=== PATIENT | male | born 1965 | race Caucasian/White ===

== ENCOUNTER 2021-10-10 10:26 | Emergency (ER) | payer BC, SELFPAY ==
[2021-10-10 10:27] VITALS: BP 133/88; PULSE 81; RESP 16; TEMP 35.9; O2SAT 96; BMI 29.2
--- NOTE | 2021-10-10 11:04 | EKG12_ITS ---
Test Reason : FATIGUE Blood Pressure : / mmHG Vent. Rate : 077 BPM Atrial Rate : 077 BPM P-R Int : 152 ms QRS Dur : 098 ms QT Int : 404 ms P-R-T Axes : 057 -04 045 degrees QTc Int : 457 ms Normal sinus rhythm Normal ECG Confirmed by FABIEN THAPA, ARTHUR ([id number]), supervising film or videotape editor BREE COX ([id number]) on 10/12/2021 11:38:40 AM Referred By: YAMEL Confirmed By:ARTHUR CONN MD
--- NOTE | 2021-10-10 11:04 | CT_ITS ---
STUDY: CTA CHEST REASON FOR EXAM: Male, 56 years old. Shortness of breath RADIATION DOSAGE (If Supplied By Facility): CTDIvol = ( 12.03 ) mGy, DLP = ( 590.71 ) mGycm TECHNIQUE: The examination was performed with the intravenous administration of IV 100mL Isovue-370. Post-processing of the angiographic images was performed, with multiplanar reformation and 3D reconstruction. Individualized dose optimization techniques were used for this CT. COMPARISON: None. FINDINGS: Normal enhancement of the main pulmonary artery and right and left pulmonary arteries. Normal enhancement of the bilateral peripheral pulmonary arteries. There is no demonstrated pulmonary embolism. Normal thoracic aorta and visualized great vessels. There is no demonstrated aortic dissection. There are calcifications of the coronary arteries. Normal mediastinum. Normal hilar regions. Normal visualized trachea and bronchi. The lungs are well expanded. Normal pulmonary parenchyma. Normal pleura. Normal chest wall structures. There are degenerative changes of thoracic spine. There is a 1.7 cm adenoma in the lateral limb of the right adrenal gland. CT/CTA Chest W/WO Contrast IMPRESSION: Normal CTA chest examination, without a demonstrated pulmonary embolism or arterial dissection. Electronically Signed: Naresh Kaur MD at 12:18 EST , Service support ,
--- NOTE | 2021-10-10 11:08 | EDS_ITS ---
HPI History of Present Illness Chief Complaint: Fatigue Narrative Narrative: Patient presents from urgent care with chief complaint of fatigue. He has mild shortness of breath. He relates history that he had COVID-19 approximately 2 months ago. He was feeling okay until last week. He developed a deep cough/lower respiratory infection. He was treated with doxycycline and a prednisone burst. He took day five of his prednisone this morning, and is still taking his doxycycline twice a day. He went back to urgent care, who sent him in to rule out a pulmonary embolism. He denies any leg swelling. No other PE risk factors. [facility] Medical History Melanoma Allergy/AdvReac Type Severity Reaction Status Date / Time No Known Allergies Allergy Verified 10/10/21 11:06 Social History Smoking Status: Never smoker ROS ROS ED ROS Narrative Constitutional: No fever, no chills. Positive fatigue and malaise. HEENT: No sore throat. No neck pain. No loss of vision. No rhinorrhea. Cardiovascular: No chest pain. No palpitations. No pedal edema. Respiratory: Occasional cough, mild shortness of breath. Abdominal: No abdominal pain. No nausea. No vomiting. Genitourinary: No dysuria. No hematuria. Musculoskeletal: No myalgias. No arthralgias. Neurologic: No headaches. No dizziness. No lightheadedness. Skin: No rash. No change in color. Psychiatric: No depression. No anxiety. EXAM Physical Exam Narrative Exam Narrative: Afebrile. Vital signs noted. HEENT: Normocephalic. Atraumatic. PERRL, EOMI. Neck soft and supple. No point tenderness or step off. Cardiovascular: Regular rate and rhythm. No murmurs, rubs, or gallops appreciated. Respiratory: No tachypnea. Lungs clear to auscultation bilaterally except occasional rhonchi bilateral bases. Gastrointestinal: Abdomen soft, nontender, with normoactive bowel sounds. No rebound or guarding. Neurological: Awake. Alert. Nonfocal, nonlateralizing. Skin: No rash. Normal color. No pallor. Musculoskeletal: No pedal edema. Full range of motion extremities. Const Vital Signs: 10/10/21 10:27 Temperature 96.7 F L Temperature Source Temporal Pulse Rate 81 Respiratory Rate 16 Respiratory Effort Normal Respiratory Pattern Normal Blood Pressure 133/88 H Blood Pressure Mean 103 Pulse Ox 96 Oxygen Delivery Method Room Air MDM MDM MDM Narrative Medical decision making narrative: I do not feel that he clinically has signs of a pulmonary embolism. I'll obtain a CBC, CMP, and bolused the patient IV fluids. CTA will be obtained. He is already being treated for pneumonia and is on day five of doxycycline. CBC is grossly normal with a normal white count and a hemoglobin of 15.4. His electrolyte panel is grossly unremarkable except for BUN slightly elevated 22 with a creatinine of 0.9. Glucose appropriately elevated at 122 with a normal anion gap of 5. He is bolused normal saline. His CTA shows no evidence of pneumonia, no pulmonary embolism or arterial dissection. 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 He was given a note to be off work for the next 2 days and he will follow up with his primary care physician. I feel he can be discharged safely home with follow-up. Return instructions were reviewed. Disposition is discharged home in stable condition. Lab Data Attestation: I reviewed the patient's lab results. Labs: Laboratory Results - last 24 hr 10/10/21 10/10/21 11:25 11:25 WBC 8.4 RBC 5.22 Hgb 15.4 Hct 47.3 MCV 90.6 MCH 29.5 MCHC 32.6 RDW Std Deviation 42.1 RDW Coeff of Justina 12.8 Plt Count 334 MPV 10.4 Immature Gran % (Auto) 1.000 H Neut % (Auto) 82.7 H Lymph % (Auto) 13.4 L [place] % (Auto) 2.5 Eos % (Auto) 0.0 Baso % (Auto) 0.4 Absolute Neuts (auto) 6.9 Absolute Lymphs (auto) 1.12 Nucleated RBC % 0 Sodium 139 Potassium 4.5 Chloride 107 Carbon Dioxide 27.0 Anion Gap 5 BUN 22 H Creatinine 0.99 Estim Creat Clear Calc 91.92 Est GFR (MDRD) Af Amer 100 Est GFR (MDRD) Non-Af 83 BUN/Creatinine Ratio 22.3 H Glucose 122 H Calcium 9.3 Radiography Diagnostic Testing: Clinical Impression(s) from Imaging Studies Chest CTA 10/10/21 11:04 IMPRESSION: Normal CTA chest examination, without a demonstrated pulmonary embolism or arterial dissection. Electronically Signed: Naresh Kaur MD at 12:18 EST , Service support , Discharge Plan Triage Chief Complaint: Fatigue ED Provider: Rasheed Mancera Dx/Rx/DC Orders Clinical Impression: Fatigue after severe acute respiratory syndrome coronavirus 2 (SARS-CoV-2) vaccination, Fatigue, Bronchitis Instructions: ED Bronchitis, No Antibiotic (Adult), ED Weakness (Uncertain Cause) Stand Alone Forms: ED Work / School Excuse Primary Care Provider: Kedar Haddad Referrals: Kedar Haddad MD [Primary Care Provider] - 10/17/21 Disposition Disposition: Home, Self Care
--- NOTE | 2021-10-10 11:11 | NURSING ---
NO OLD EKGS
[2021-10-10] MEDS: 0.9% Normal Saline 1,000 ML 999 ML IV (11:38)
[2021-10-10 11:43] LABS: Absolute Lymphocyte Count 1.12 X10^3/uL (0.83-4.51); Absolute Neutrophil Count 6.9 X10^3/uL (2.0-7.7); Basophil# 0.03 X10^3/uL; Basophil% 0.4 % (0-1); Hematocrit 47.3 % (40-54); Hemoglobin 15.4 g/dL (13.0-16.5); Lymphocyte # 1.12 X10^3/ul (0.83-4.51); Lymphocyte % 13.4 % (19-41); Mean Corp Hgb Conc 32.6 g/dL (32-36); Mean Corpuscular Hgb 29.5 pg (27.0-32.0); Mean Corpuscular Volume 90.6 fL (80-94); Mean Platelet Vol. 10.4 fl (6.2-12.0); Monocyte# 0.21 X10^3/uL; Monocyte% 2.5 % (0-10); NRBC Flagged by Analyzer 0 % (0-5); Neutrophil # 6.93 X10^3/uL (2.7-7.7); Neutrophil % 82.7 % (47-70); Platelet Count 334 K/mm3 (150-450); RBC Distribution Width CV 12.8 % (11.6-14.6); RBC Distribution Width SD 42.1 fl (35.1-43.9); Red Blood Count 5.22 M/mm3 (4.6-6.2); White Blood Count 8.4 K/mm3 (4.4-11.0)
[2021-10-10 12:00] LABS: Anion Gap 5 (5-15); BUN 22 mg/dL (7-18); BUN/Creat Ratio 22.3 RATIO (10-20); Calcium,Total 9.3 mg/dL (8.5-10.1); Chloride 107 mmol/L (98-107); Creatinine, Serum 0.99 mg/dL (0.70-1.30); EST Glomerular Filtration Rate 83 mL/min (>60); Est Glom Filt Rate - Afr Amer 100 mL/min (>60); Estimated Creatinine Clearance 91.92 ml/min; Glucose 122 mg/dL (74-106); Potassium 4.5 mmol/L (3.5-5.1); Sodium Level 139 mmol/L (136-145)
[2021-10-10 13:10] VITALS: BP 125/90; PULSE 74; RESP 18; O2SAT 99
== END 2021-10-10 13:11 | disposition home or self-care (01) ==
LOC: ED 12:41
PROVIDERS: Emergency Provider Emergency Medicine; PCP Family Medicine
DX: J40 Bronchitis, not specified as acute or chronic (principal); R53.83 Other fatigue
CPT/HCPCS: 71275; 80048; 85025; 93005; 96360; 96361; 99284; J7030; Q9967; A4216

== ENCOUNTER 2022-02-20 09:31 | Inpatient (IN) | payer BC, SELFPAY ==
[2022-02-20] VITALS (39 sets, daily range): BP systolic 58–138; BP diastolic 41–100; PULSE 54–154; RESP 12–29; TEMP 35.6–36.7; O2SAT 91–99; BMI 29.3; BMI 31.0
--- NOTE | 2022-02-20 09:47 | EKG12_ITS ---
Test Reason : SVT Blood Pressure : / mmHG Vent. Rate : 155 BPM Atrial Rate : 155 BPM P-R Int : 098 ms QRS Dur : 114 ms QT Int : 268 ms P-R-T Axes : 085 048 060 degrees QTc Int : 430 ms Atrial flutter with 2 to 1 block Abnormal ECG Confirmed by FABIEN THAPA, ARTHUR ([id number]), magazine editor BREE COX ([id number]) on 02/22/2022 7:37:50 AM Referred By: Wali Finnegan Confirmed By:ARTHUR CONN MD
--- NOTE | 2022-02-20 09:50 | EX.ED.DYSGE1 ---
HPI History of Present Illness Chief Complaint: Palpitations Informant: patient Narrative Narrative: Patient is a 56-year-old male that denies any past medical history of he does admit to tobacco use, presenting with shortness of breath and abnormal EKG at primary care doctor office. Patient been having some shortness of breath for the past 3 to 4 weeks. He had appointment today related EKG. He had an abnormal EKG with a heart rate of 154 so he was sent to the emergency room for further evaluation. Patient denies any sensation of his heart racing or palpitations. Denies any chest pain. Does get some dependent edema but figures as because he is on his feet all day. 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 Does not see a doctor regularly does not take any medications on a daily basis. No fever or chills. No cough reported. No other complaints at this time. [facility] Medical History Melanoma Home Medications NK 02/20/22 [History Last Taken Unknown] Allergy/AdvReac Type Severity Reaction Status Date / Time No Known Allergies Allergy Verified 02/20/22 09:34 Social History Smoking Status: Current every day smoker tobacco type: cigarettes ROS ROS ED Constitutional Constitutional ED: Denies chills or fever(s) Eyes Eyes: Denies blurry vision or change in vision ENT ENT ED: Denies rhinorrhea or sore throat Cardiovascular Cardiovascular: Denies chest pain, palpitations or racing heartbeat Respiratory/Chest Respiratory/Chest: Reports dyspnea and dyspnea on exertion; Denies cough Gastrointestinal Gastrointestinal: Denies abdominal pain, constipation, diarrhea or vomiting Genitourinary Genitourinary ED: Denies dysuria Musculoskeletal Musculoskeletal: Denies arthralgias or myalgias Integumentary Denies rash Neurologic Neurologic: Denies headache(s) or weakness Psychiatric Psychiatric: Denies anxiety or depression EXAM Physical Exam Const Vital Signs: 02/20/22 09:33 02/20/22 09:44 02/20/22 09:54 Temperature 96.9 F L Temperature Source Temporal Pulse Rate 154 H Respiratory Rate 22 H Respiratory Effort Normal Non-Labored Respiratory Pattern Normal Blood Pressure 136/96 H Blood Pressure Mean 109 Pulse Ox 98 Oxygen Delivery Method Room Air Room Air 02/20/22 10:30 02/20/22 11:24 02/20/22 11:48 Temperature 98.1 F Temperature Source Temporal Pulse Rate 125 H 121 H 113 H Respiratory Rate 17 20 H 18 Respiratory Effort Respiratory Pattern Blood Pressure 109/97 H 119/94 H 119/94 H Blood Pressure Mean 101 102 102 Pulse Ox 95 94 97 Oxygen Delivery Method Room Air Room Air Room Air Positive well nourished and well developed General Appearance ED: well developed and NAD HEENT Reports moist mucous membranes Eyes PERRL and EOMs intact bilaterally Neck supple and no JVD Chest Wall inspection of chest normal Resp normal respiratory effort Auscultation: diminished lung sounds bilateral lower Cardio regular rhythm and no murmurs Rate: tachycardic GI normal to inspection, nondistended, normoactive bowel sounds and non-tender Palpation: soft Back/Spine no CVA tenderness Extremity normal to inspection Extremity Narrative: 1+ pitting General Extremety ED: Yes edema; Negative for tenderness General Extremity: edema Neuro oriented x3 Sensorium / Orientation: alert Motor Exam: Negative for general weakness Psych mental status grossly normal Skin no rashes or lesions noted and no wounds MDM MDM MDM Narrative Medical decision making narrative: Patient is evaluated for shortness of breath. He had an outpatient EKG today which showed a tachyarrhythmia and he was sent to the emergency room. Patient is tachycardic and maintaining at a rate of 154. I suspect he has had atrial flutter with 2 1 conduction. He is given IV metoprolol with improvement of his rate however he is now in the 110's. Patient is minimally symptomatic. He notes he has been having worsening dyspnea on exertion and shortness of breath over the past month. Does not see a doctor regularly but does not have any cardiac history. Does have a history of tobacco use. High since he troponin is normal at 37. He does have an elevated BNP of 348.7. D-dimer is elevated at 1.02. CBC normal. BMP shows creatinine 1.23 but otherwise unremarkable. CTA of the chest is indeterminant but low likelihood for right lower lobe segmental PE however it does show dilated left ventricular cardiomyopathy with moderate pulmonary edema and moderate coronary artery disease. Patient is given IV Lasix in the ER. He will be admitted for further rate control as well as cardiac evaluation for concern of new onset of heart failure. He is agreeable this plan of care. Case is discussed with hospitalist. Lab Data Attestation: I reviewed the patient's lab results. Labs: Laboratory Results - last 24 hr 02/20/22 02/20/22 02/20/22 09:35 09:35 09:35 WBC 7.9 RBC 4.47 L Hgb 13.4 Hct 42.3 MCV 94.6 H MCH 30.0 MCHC 31.7 L RDW Std Deviation 45.3 H RDW Coeff of Justina 13.1 Plt Count 300 MPV 11.2 Immature Gran % (Auto) 0.500 Neut % (Auto) 60.0 Lymph % (Auto) 27.7 [place] % (Auto) 7.8 Eos % (Auto) 3.0 Baso % (Auto) 1.0 Absolute Neuts (auto) 4.7 Absolute Lymphs (auto) 2.19 Nucleated RBC % 0 PT 12.9 INR 1.0 D-Dimer Quant (PE/DVT) 1.02 H* Sodium 139 Potassium 4.4 Chloride 110 H Carbon Dioxide 23.0 Anion Gap 6 BUN 17 Creatinine 1.23 Estim Creat Clear Calc 73.98 Est GFR (MDRD) Af Amer 78 Est GFR (MDRD) Non-Af 64 BUN/Creatinine Ratio 13.8 Glucose 120 H Calcium 9.0 Magnesium 2.0 Troponin I High Sens B-Natriuretic Peptide TSH 1.99 02/20/22 02/20/22 09:35 09:35 WBC RBC Hgb Hct MCV MCH MCHC RDW Std Deviation RDW Coeff of Justina Plt Count MPV Immature Gran % (Auto) Neut % (Auto) Lymph % (Auto) [place] % (Auto) Eos % (Auto) Baso % (Auto) Absolute Neuts (auto) Absolute Lymphs (auto) Nucleated RBC % PT INR D-Dimer Quant (PE/DVT) Sodium Potassium Chloride Carbon Dioxide Anion Gap BUN Creatinine Estim Creat Clear Calc Est GFR (MDRD) Af Amer Est GFR (MDRD) Non-Af BUN/Creatinine Ratio Glucose Calcium Magnesium Troponin I High Sens 37 B-Natriuretic Peptide 348.7 H TSH Radiography Chest X-Ray - ED: 1 View, Read by ED Physician, Read by Radiologist and CHF Diagnostic Testing: Clinical Impression(s) from Imaging Studies Chest X-Ray 02/20/22 09:56 IMPRESSION: Presumed bilateral pneumonia. Electronically Signed: Varsha Reyna MD at 10:25 EDT , Chest CTA 02/20/22 10:27 IMPRESSION: 1. No central/large pulmonary embolism. 2. Inconclusive right lower lobe segmental arterial evaluation, intermediate probability of low volume acute pulmonary embolism. Refer to lower extremity US for further risk stratification. 3. Intact aorta. 4. 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 5. Moderate coronary artery disease. Electronically Signed: Varsha Reyna MD at 11:20 EDT , Rhythm Strip Rhythm Strip: Atrial flutter Rate: 155 Ectopy: None EKG Initial EKG: Attestation: I personally reviewed and interpreted this EKG as follows: Interpretation: Atrial Flutter Comments: Atrial flutter with 2 1 conduction at a rate of 155 Normal axis Normal intervals Normal ST segments Prior: No Prior Follow-up EKG: Attestation: I personally reviewed and interpreted this EKG as follows: Interpretation: Atrial Flutter Comments: Atrial flutter with variable AV block and PVCs present Rate of 117 Normal axis Normal QRS and QTc Normal ST segments Discharge Plan Triage Chief Complaint: Palpitations ED Provider: Stacy Macias Dx/Rx/DC Orders Clinical Impression: Atrial flutter with rapid ventricular response, Heart failure Prescriptions: No Action NK RF: 0 Primary Care Provider: Kedar Haddad Referrals: Kedar Haddad MD [Primary Care Provider] - Disposition Disposition: Acute Care Hospital [facility]
[2022-02-20] MEDS: 0.9% Normal Saline 1,000 ML 1000 ML IV (09:55)
[2022-02-20] MEDS: Metoprolol Tartrate 5 MG/5 ML Vial IV ×3 (09:56→11:24)
[2022-02-20] MEDS: Aspirin 81 MG TAB.CHEW 324 MG PO (09:56)
--- NOTE | 2022-02-20 09:56 | RAD_ITS ---
STUDY: X-RAY CHEST REASON FOR EXAM: Male, 56 years old. chest pain GOT EKG THIS MORNING SHOWING SVT. STATES SAW DOC FOR INCREASED SOB TECHNIQUE: Frontal portable view of the chest COMPARISON: 10 October 2021 FINDINGS: There are heterogeneous multifocal bilateral nodular/regional opacities. There is no pneumothorax, pulmonary edema, cardiomegaly or effusions. RAD/Chest 1 View (Portable) IMPRESSION: Presumed bilateral pneumonia. Electronically Signed: Varsha Reyna MD at 10:25 EDT ,
[2022-02-20 09:58] LABS: Absolute Lymphocyte Count 2.19 X10^3/uL (0.83-4.51); Absolute Neutrophil Count 4.7 X10^3/uL (2.0-7.7); Basophil# 0.08 X10^3/uL; Eosinophil# 0.24 X10^3/uL; Hematocrit 42.3 % (40-54); Hemoglobin 13.4 g/dL (13.0-16.5); Lymphocyte # 2.19 X10^3/ul (0.83-4.51); Lymphocyte % 27.7 % (19-41); Mean Corp Hgb Conc 31.7 g/dL (32-36); Mean Corpuscular Volume 94.6 fL (80-94); Mean Platelet Vol. 11.2 fl (6.2-12.0); Monocyte# 0.62 X10^3/uL; Monocyte% 7.8 % (0-10); NRBC Flagged by Analyzer 0 % (0-5); Neutrophil # 4.74 X10^3/uL (2.7-7.7); Platelet Count 300 K/mm3 (150-450); RBC Distribution Width CV 13.1 % (11.6-14.6); RBC Distribution Width SD 45.3 fl (35.1-43.9); Red Blood Count 4.47 M/mm3 (4.6-6.2); White Blood Count 7.9 K/mm3 (4.4-11.0)
[2022-02-20 10:10] LABS: Prothrombin Time (Protime)PT. 12.9 SECONDS (11.7-14.9)
[2022-02-20 10:18] LABS: D-Dimer Quantitative (DVT/PE) 1.02 FEU/ug/m (0.27-0.49)
[2022-02-20 10:20] LABS: BNP,B-Type NATRIURETIC PEPTIDE 348.7 pg/mL (0-100)
[2022-02-20 10:22] LABS: Anion Gap 6 (5-15); BUN 17 mg/dL (7-18); BUN/Creat Ratio 13.8 RATIO (10-20); Chloride 110 mmol/L (98-107); Creatinine, Serum 1.23 mg/dL (0.70-1.30); EST Glomerular Filtration Rate 64 mL/min (>60); Est Glom Filt Rate - Afr Amer 78 mL/min (>60); Estimated Creatinine Clearance 73.98 ml/min; Glucose 120 mg/dL (74-106); Potassium 4.4 mmol/L (3.5-5.1); Sodium Level 139 mmol/L (136-145); Thyroid Stim Hormone (TSH) 1.99 uIU/mL (0.358-3.74)
--- NOTE | 2022-02-20 10:27 | CT_ITS ---
STUDY: CTA CHEST REASON FOR EXAM: Male, 56 years old. Palpitations elevated d-dimer RADIATION DOSAGE (If Supplied By Facility): CTDIvol = ( 17.61 ) mGy, DLP = ( 1164.17 ) mGycm TECHNIQUE: The examination was performed with the intravenous administration of IV 100mL Isovue-370. Post-processing of the angiographic images was performed, with multiplanar reformation and 3D reconstruction. Individualized dose optimization techniques were used for this CT. COMPARISON: None. FINDINGS: Examination is technically suboptimal due to poor mixing of contrast and opacification in the distal segmental arteries. There is no central/large pulmonary embolism.. There is questionable appearance of right lower lobe subsegmental arteries. There is no right heart strain. Aorta is normal caliber and intact with early mixed atherosclerosis. There is small right pleural effusion and bilateral basal atelectasis. There is moderate pulmonary edema. Left heart is severely dilated with normal right heart. Pericardium is normal. Coronary arteries are moderately diseased with calcified plaque. Number and size of mediastinal lymph nodes in all stations has increased. Largest lymph node is in the subcarinal station at 1.6 cm. There is a benign calcified dystrophic pretracheal lymph nodes. CT/CTA Chest W/WO Contrast IMPRESSION: 1. No central/large pulmonary embolism. 2. Inconclusive right lower lobe segmental arterial evaluation, intermediate probability of low volume acute pulmonary embolism. Refer to lower extremity US for further risk stratification. 3. Intact aorta. 4. 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 5. Moderate coronary artery disease. Electronically Signed: Varsha Reyna MD at 11:20 EDT ,
[2022-02-20 10:54] LABS: Troponin-I HS (w/2H Reflex) 37 pg/mL (3.0-78.0)
--- NOTE | 2022-02-20 10:57 | EKG12_ITS ---
Test Reason : CP Blood Pressure : / mmHG Vent. Rate : 130 BPM Atrial Rate : 270 BPM P-R Int : 000 ms QRS Dur : 106 ms QT Int : 352 ms P-R-T Axes : 000 067 091 degrees QTc Int : 518 ms Atrial flutter with variable A-V block Abnormal ECG Confirmed by FABIEN THAPA, ARTHUR ([id number]), book or script editor BREE COX ([id number]) on 02/22/2022 10:50:03 AM Referred By: Wali Finnegan Confirmed By:ARTHUR CONN MD
--- NOTE | 2022-02-20 11:45 | HP.PCM.HOS_ITS ---
[facility] - General General Date of Admission: 02/20/22 HPI Narrative CAMRYN ALFRED, is a 56 M with a PMH as outlined who presents via the ED on 02/20/2022 with a complaint of palpitations. This had been going on for ~ 4 weeks, with associated shortness of breath. He denied any dizziness, chest pain, nausea or vomiting. Review of systems is otherwise negative. He hasnt had this previously, and doesnt see a doctor regularly. He went to see his PCP today and an EKG done showed heart rate of 154. It was thought to be SVT so he was sent into the ED. On arrival in the ED he had an EKG done which was read as atrial flutter. Vitals at time of review showed blood pressure 119/94, with pulse rate of 121 and respiratory rate of 20. He was saturating at 94% on room air. CBC showed hemoglobin of 13.4 with WBC of 7.9 and platelets of 300. D-dimer was 1.02. BMP was unremarkable with potassium of 4.4. BNP was 348.7. Chest x-ray showed presumed bilateral pneumonia. CTA of the chest showed no central or large pulmonary embolism and showed inconclusive right lower lobe segmental arterial evaluation with intermediate probability of low volume acute PE. 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 He has been admitted to be managed for new onset atrial flutter with rapid ventricular rate. WHilst reviewing patient, a repeat EKG done showed that he was having a STEMI. A STEMI alert was therefore called. Cardiology however reviewed the EKG and did not think that he met the criteria for STEMI so patient was not taken to the [facility]. He was therefore admitted to be managed for new onset atrial flutter with RVR as well as probable new onset heart failure. [facility] Medical History (Updated 02/20/22 @ 15:[address] Gregor Amaya MD) Cardiomyopathy CHF (congestive heart failure) Melanoma Home Medications NK 02/20/22 [History Last Taken Unknown] Allergy/AdvReac Type Severity Reaction Status Date / Time No Known Allergies Allergy Verified 02/20/22 09:34 Social History Smoking Status: Current every day smoker tobacco type: cigarettes ROS Constitutional Constitutional: Reports weakness; Denies anorexia, change in weight, chills or fever(s) Eyes Eyes: Denies change in vision ENT HEENT: Reports nasal congestion; Denies dysphagia, hearing loss or nasal discharge Cardiovascular Cardiovascular: Reports palpitations and rapid heart rate; Denies chest pain, dyspnea on exertion, edema, lightheadedness, orthopnea, paroxysmal nocturnal dyspnea or syncope Respiratory/Chest Respiratory/Chest: Reports dyspnea and productive cough; Denies cough, excessive phlegm production, hemoptysis, shortness of breath at rest, shortness of breath with exertion or wheezing Gastrointestinal Gastrointestinal: Denies abdominal pain, coffee ground emesis, constipation, diarrhea, nausea or vomiting Genitourinary Genitourinary: Denies burning urination or dysuria Musculoskeletal Musculoskeletal: Denies back pain or joint swelling Neurologic Neurologic: Denies abnormal gait, confusion, dizziness, focal weakness or headache(s) Psychiatric Psychiatric: Denies anxiety Allergic/Immunologic Allergic/Immunologic: Denies asthma Vital Signs Vital Signs Vital Signs: 02/20/22 09:33 02/20/22 09:44 02/20/22 09:54 Temperature 96.9 F L Temperature Source Temporal Pulse Rate 154 H Respiratory Rate 22 H Respiratory Effort Normal Non-Labored Respiratory Pattern Normal Blood Pressure 136/96 H Blood Pressure Mean 109 Pulse Ox 98 Oxygen Delivery Method Room Air Room Air 02/20/22 10:30 02/20/22 11:24 Temperature Temperature Source Pulse Rate 125 H 121 H Respiratory Rate 17 20 H Respiratory Effort Respiratory Pattern Blood Pressure 109/97 H 119/94 H Blood Pressure Mean 101 102 Pulse Ox 95 94 Oxygen Delivery Method Room Air Room Air Weight Weight: 222 lb 3.615 oz Body Mass Index (BMI) 29.3 Physical Exam Const alert, oriented x3 and no apparent distress General Appearance: cooperative HEENT normocephalic, head/scalp atraumatic, hearing grossly normal bilaterally and moist oral mucous membranes Eyes PERRL, EOMs intact bilaterally and conjunctivae normal Neck no lymphadenopathy and supple Resp Resp Narrative: mildly diminished breath sounds bibasally, no wheezes or crackles. On 2L of oxygen by nasal canula Cardio Cardio Narrative: tachycardia, atrial flutter with poor rate control GI normal to inspection, nondistended, normoactive bowel sounds, soft to palpation, non-tender and non-distended Extremity normal to inspection, full ROM and no clubbing, cyanosis or edema Peripheral Pulses: Yes pulses 2+ throughout Skin no rashes or lesions noted Neuro oriented x3, CN's II-XII intact bilaterally and moves all extremities Sensorium / Orientation: awake and alert Psych affect normal Results Lab / Micro Data Result Diagrams: 02/20/22 09:35 02/20/22 09:35 Labs: Laboratory Results - last 24 hr 02/20/22 09:35: WBC 7.9, RBC 4.47 L, Hgb 13.4, Hct 42.3, MCV 94.6 H, MCH 30.0, MCHC 31.7 L, RDW Std Deviation 45.3 H, RDW Coeff of Justina 13.1, Plt Count 300, MPV 11.2, Immature Gran % (Auto) 0.500, Neut % (Auto) 60.0, Lymph % (Auto) 27.7, Mcleod % (Auto) 7.8, Eos % (Auto) 3.0, Baso % (Auto) 1.0, Absolute Neuts (auto) 4.7, Absolute Lymphs (auto) 2.19, Nucleated RBC % 0 02/20/22 09:35: PT 12.9, INR 1.0, D-Dimer Quant (PE/DVT) 1.02 H* 02/20/22 09:35: Sodium 139, Potassium 4.4, Chloride 110 H, Carbon Dioxide 23.0, Anion Gap 6, BUN 17, Creatinine 1.23, Estim Creat Clear Calc 73.98, Est GFR (MDRD) Af Amer 78, Est GFR (MDRD) Non-Af 64, BUN/Creatinine Ratio 13.8, Glucose 120 H, Calcium 9.0, Magnesium 2.0, TSH 1.99 02/20/22 09:35: B-Natriuretic Peptide 348.7 H 02/20/22 09:35: Troponin I High Sens 37 Radiology Impression Chest X-Ray 02/20/22 09:56 IMPRESSION: Presumed bilateral pneumonia. Electronically Signed: Varsha Reyna MD at 10:25 EDT , Chest CTA 02/20/22 10:27 IMPRESSION: 1. No central/large pulmonary embolism. 2. Inconclusive right lower lobe segmental arterial evaluation, intermediate probability of low volume acute pulmonary embolism. Refer to lower extremity US for further risk stratification. 3. Intact aorta. 4. 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 5. Moderate coronary artery disease. Electronically Signed: Varsha Reyna MD at 11:20 EDT Reading Location ID and State: [facility] / [place] Tel , Service support , Assessment & Plan Assessment/Plan (1) Atrial flutter with rapid ventricular response: (2) Heart failure: PLAN: #Atrial flutter with RVR * admitted with palpitations and shortness of breath for 3-4 weeks now. * EKG showed atrial flutter with RVR * admit to PCU with telemetry * received a bolus of cardizem in the ED. Started on cardizem drip * Was thought to have STEMI but cardiology reviewed EKG and did not think he had STEMI. * on therapeutic lovenox * cardiology consulted * initial troponin was negative. Will cycle * diurese with IV lasix 40mg bid o/a of concern for heart failure * TSH is 1.99 * 2D echo ordered * D dimer was elevated at 1.02, but CTA showed showed no central large pulmonary embolism but was inconclusive for right lower lobe segmental arterial evaluation with intermediate probability for low volume acute PE. Duplex of the LEs recommended. * #Acute heart failure of unknown EF * BNP is 348.7. Not known to have heart failure * Diuresed with IV Lasix 40 mg twice daily. Monitor intake and output. Fluid restriction 1500 cc daily. * Cardiology consulted. 2D echo ordered as above. * # history of nicotine dependence: Counseled to quit. Nicotine patch 21 mg daily. DVT Prophylaxis: not indicated as patient is on therapeutic lovenox o/a of atrial flutter. CODE STATUS: Full code * Patient counseled extensively about different types of CODE STATUS including full code, DNR CCA and DNR CCA. Patient elects to be full code. Total [id number] time 17 minutes. Charges/Coding Visit Charges Inpatient E&M: 92669 Init Hosp L3 Procedures Hospitalists Procedures: 81659 Advncd Care Plan 30 Min
[2022-02-20] MEDS: Furosemide 40 MG/4 ML Vial IV (11:48)
--- NOTE | 2022-02-20 11:49 | VDLE_ITS ---
Reason For Study: elevated D-Dimer RIGHT LEFT GSV is normal. GSV is normal. CFV is compressible, spontaneous, phasic, CFV is compressible, spontaneous, phasic, competent and demonstrates normal competent, and demonstrates normal augmentation. augmentation. FV is compressible, spontaneous, phasic, FV is compressible, spontaneous, phasic, competent and demonstrates normal competent and demonstrates normal augmentation. augmentation. POP V is compressible, spontaneous, phasic, POP V is compressible, spontaneous, phasic, competent and demonstrates normal competent and demonstrates normal augmentation. augmentation. T/P Trunk is compressible. T/P Trunk is compressible. PTV is compressible. PTV is compressible. RT PerV is compressible. LT PerV is compressible. Procedure This is a venous duplex using B-mode, color flow and spectral Doppler. Exam performed portable in patient room. The exam was diagnostic. A preliminary report was called and/or faxed to the pt's RN. VL/Venous Duplex US - [place] Extrem Interpretation Summary No evidence for acute deep venous thrombosis bilateral lower extremities with p atent and compressible bilateral great saphenous veins. Ordering Physician: Stacy Macias Performed By: Rod Vargas RVHumphrey
[2022-02-20] MEDS: Heparin Injection (Vial) 5,000 UNIT/ML VIAL 4000 UNIT IV (12:12)
--- NOTE | 2022-02-20 12:14 | CM.ED ---
Social Work Responding to STEMI alert. Patient alert and talking with staff. Patient reports that spouse is on the way to the hospital. Patient spouse name is Mita. This geriatric social worker will continue to follow as needed. agent spa desk notified of patient spouse coming. Mary LANIER, GUIDO
--- NOTE | 2022-02-20 12:21 | ED.RN ---
PT BECAME SOB WHILE TAKING PANTS OFF FOR ULTRASOUND, EKG WAS OBTAINED AT THIS TIME. DENIES ANY CHEST PAIN. STEMI CALLED AT 1207
[2022-02-20 12:30] LABS: Reflex Troponin-HS? (from REC) Y
[2022-02-20] MEDS: dilTIAZem 25 MG/5 ML Vial 10 MG IV BOLUS (13:06)
[2022-02-20 13:38] LABS: Troponin-I HS 40 pg/mL (3.0-78.0)
--- NOTE | 2022-02-20 13:56 | ECHOCS_ITS ---
Reason For Study: A fib/flutter Procedure This was a 2D Doppler, Color Flow transthoracic echocardiogram. The study was technically difficult. Contrast injection was performed. Exam performed portable in patient room. Left Ventricle Severely dilated left ventricle. Severe global left ventricular systolic dysfunction. The estimated ejection fraction is 10 %. Unable to assess diastolic dysfunction. Right Ventricle Normal RV size. Normal systolic function. Atria The left atrium is moderately enlarged. Normal right atrium. No doppler evidence for ASD. Mitral Valve There is no mitral annular calcification. Mild papillary muscle dysfunction of the mitral valve. Moderate (2+) mitral valve insufficiency. Tricuspid Valve Normal tricuspid valve. Mild tricuspid valve insufficiency. Right ventricular systolic pressure estimated to be 32 mmHg. Aortic Valve Trisinus/trileaflet aortic valve. Normal aortic valve. Pulmonic Valve The pulmonic valve is not well visualized. Great Vessels Normal sized aortic root. Pericardium/Pleural No pericardial effusion. Medication Diluted definity 3ml given slow IV push to enhance endocardial definition. MMode/2D Measurements & Calculations LVIDd: 6.9 cm IVSd: 0.95 cm Ao root diam: 3.0 cm LVIDs: 6.2 cm LVPWd: 0.86 cm RVDd: 4.5 cm FS: 10.2 % LAV(MOD-bp): 101.9 ml LVAd ap4: 59.4 cm2 SV(MOD-sp4): 39.9 ml LAV(MOD-bp) Indexed: 44.2 ml/m2 LVLd ap4: 10.3 cm LAV(MOD-sp2): 101.8 ml EDV(MOD-sp4): 282.7 ml LAV(MOD-sp4): 93.6 ml EDV(sp4-el): 291.0 ml LVAs ap4: 54.9 cm2 LVLs ap4: 10.3 cm ESV(MOD-sp4): 242.7 ml ESV(sp4-el): 247.8 ml EF(MOD-sp4): 14.1 % EF(sp4-el): 14.8 % SV(sp4-el): 43.2 ml LA A4 area: 28.7 cm2 LA dimension(2D): 4.9 cm RA A4 area: 18.9 cm2 Doppler Measurements & Calculations MV E max lionel: 114.8 cm/sec Ao V2 max: 99.9 cm/sec LV V1 max: 74.9 cm/sec Ao max P.1 mmHg LV V1 max P.3 mmHg PA V2 max: 75.2 cm/sec TR max lionel: 270.6 cm/sec TR max P.3 mmHg ECHO/Echo Complete W/ Contrast Interpretation Summary The study was technically difficult. Contrast injection was performed. Severely dilated left ventricle. Severe global left ventricular systolic dysfunction. The estimated ejection fraction is 10 %. The left atrium is moderately enlarged. Mild papillary muscle dysfunction of the mitral valve. Moderate (2+) mitral valve insufficiency. Mild tricuspid valve insufficiency. Right ventricular systolic pressure estimated to be 32 mmHg. Unable to assess diastolic dysfunction. Ordering Physician: Rebeca Duron Referring Physician: MD Catie Kedar Performed By: Lina Martinez RDCS
--- NOTE | 2022-02-20 14:56 | CON.PCM.CA_ITS ---
Assessment & Plan Assessment/Plan (1) Atrial flutter with rapid ventricular response: PLAN: The patient has findings of atrial flutter with rapid ventricular response. The etiology is unclear at this time. There is concern that this may be related to the finding of an underlying cardiomyopathy. The patient has been evaluated for thromboembolic disease. His chest CT scan report is somewhat vague with respect to the presence of a PE. His lower extremity venous duplex study is preliminary reported as negative for any evidence of lower extremity thrombosis that would lead to a PE. The duration of his atrial dysrhythmia is also on known at this time. He has been treated with rate control therapy. An order has been placed for anticoagulant therapy with enoxaparin/Lovenox. It may not be unreasonable to attempt antiarrhythmic therapy such as IV amiodarone which may assist with rate control and may potentially assist with regaining and/or maintaining sinus rhythm. (2) Cardiomyopathy: PLAN: The patient appears to have an underlying cardiomyopathy with sig nificant left ventricular systolic dysfunction/reduced ejection fraction. It is unclear as to whether or not this is secondary to his atrial dysrhythmia or potentially leading to his atrial dysrhythmia and being related to another etiology either CAD related or non-CAD related. At the present time the patient will need to continue medical management which could include agents such as beta-blockers, afterload reducing agents, diuretics, etc. The patient will need to be considered for further evaluation of the possibility of CAD leading to his findings with diagnostic cardiac catheterization. The procedure risks have been discussed with him. He was agreeable to this approach. (3) CHF (congestive heart failure): PLAN: The patient does have underlying CHF. At the moment this appears to be acute systolic mediated CHF. This appears to be related to a combination of his underlying atrial dysrhythmia and the finding of an underlying cardiomyopathy. Again he will need to continue medical management which will include agents such as nitrates, beta-blockers, diuretics, afterload reducing agents, etc. all as deemed appropriate and tolerated. He will need to continue further noninvasive and invasive valuation and care as deemed appropriate. Addt'l Comments The patient's case was discussed and reviewed with the patient and Dr. Finnegan of interventional cardiology. This note was generated using a voice recognition system and there may be incorrect words, spelling or punctuation that were not noted when reviewing the office note prior to saving. HPI Consult Data Date of Consult: 02/20/22 HPI Narrative HPI Narrative: CAMRYN ALFRED, is a 56 year old whtie male who presents cardiovascular consultation based upon concerns of shortness of breath/dyspnea with exertion and atrial flutter with rapid ventricular response. He states over at least the last month he has been progressively short of breath and dyspneic with exertional activity to the point where he has been only able to walk a few feet before becoming short of breath and dyspneic. He states this does not necessarily bother him when he is sitting or lying down. He does not recall any chest discomfort with his shortness of breath and dyspnea. There has been no obvious acute orthopnea or PND or peripheral pitting edema. He denies the sensation of any type of palpitations or rapid heart rate. There has been no near-syncope or syncope. He presented to the [facility] emergency department today for further evaluation. During his evaluation he had a troponin I level performed which was negative. He had an ECG performed which appeared to demonstrate atrial flutter with a repeat ECG demonstrating atrial flutter with with concerns of an acute ST segment elevation [place]-inferior. The patient was subsequently evaluated by Dr. Finnegan of interventional cardiology. Status post his evaluation the ECG was deemed to represent underlying atrial flutter with no acute ST segment elevation-inferior present. The patient then was recommended for continued noninterventional evaluation and care. The patient has subsequently undergone evaluation with a chest x-ray and a chest CT scan. The results are noted below. The patient is also subsequently undergone evaluation with a lower extremity venous duplex study to evaluate for DVT. The preliminary evaluation is negative for DVT. The patient has also undergone further evaluation with a transthoracic echocardiogram. The results are noted below. In brief this demonstrated a dilated left ventricle with severe global left ventricular systolic dysfunction with an estimated LVEF of approximately 10%. [facility] Medical History (Updated 02/20/22 @ 15:[address] Gregor Amaya MD) Cardiomyopathy CHF (congestive heart failure) Melanoma Home Medications NK 02/20/22 [History Last Taken Unknown] Allergy/AdvReac Type Severity Reaction Status Date / Time No Known Allergies Allergy Verified 02/20/22 09:34 Social History Smoking Status: Current every day smoker tobacco type: cigarettes ROS Constitutional Constitutional: Reports fatigue Eyes Eyes: Reports as per HPI ENT HEENT: Reports as per HPI Cardiovascular Cardiovascular: Reports dyspnea on exertion and fatigue Respiratory/Chest Respiratory/Chest: Reports dyspnea on exertion Gastrointestinal Gastrointestinal: Reports as per HPI Genitourinary Genitourinary: Reports as per HPI Musculoskeletal Musculoskeletal: Reports as per HPI Integumentary Integumentary: Reports as per HPI Neurologic Neurologic: Reports as per HPI Psychiatric Psychiatric: Reports as per HPI Physical Exam Const alert, oriented x3 and no apparent distress Orientation / Consciousness: awake HEENT normocephalic, head/scalp atraumatic and hearing grossly normal bilaterally Eyes PERRL, EOMs intact bilaterally and conjunctivae normal Neck full ROM, supple and no JVD Resp Auscultation: breath sounds absent bilateral (bases) Cardio Rhythm: abnormal rhythm irregularly irregular Heart Sounds: S1 normal and S2 normal GI normal to inspection, nondistended, normoactive bowel sounds Extremity no pedal edema Skin no rashes or lesions noted Neuro oriented x3, moves all extremities, no focal motor deficits and no sensory deficits noted Psych mental status grossly normal Risk Stratification Risk Stratification Applicable: No Procedure Criteria Type of Procedure Procedure Type: Elective Elective Risks - COVID COVID Risk Discussion: The surgeon/proceduralist and patient have discussed in detail the risk of exposure to and/or potential harm posed by the COVID-19 virus with having a surgery/procedure at this time versus the risk of delaying the surgery/procedure. It is not possible to know either the risk of delaying the surgery or procedure or chance of getting an infection with perfect accuracy, but a joint decision was made between the patient and the surgeon/proceduralist to proceed at this time with the scheduled surgery/procedure as indicated on the consent form. Objective Data Vital Signs: Vital Signs Temp Pulse Resp BP Pulse Ox 98.1 F 100 18 109/82 H 96 02/20/22 11:48 02/20/22 14:45 02/20/22 14:45 02/20/22 14:45 02/20/22 14:45 Oxygen Flow Rate (L/min) 2 Oxygen Delivery Method Nasal Cannula Weight: 235 lb 0.204 oz Body Mass Index (BMI) 31.0 Intake & Output: Intake and Output for Last 24 Hours 02/18/22 02/19/22 02/20/22 23:59 23:59 23:59 Intake Total 1009.25 / 1009.25 Balance 1009.25 / 1009.25 Lab / Micro Data Result Diagrams: 02/20/22 09:35 02/20/22 09:35 Labs: Laboratory Results - last 24 hr 02/20/22 09:35: WBC 7.9, RBC 4.47 L, Hgb 13.4, Hct 42.3, MCV 94.6 H, MCH 30.0, MCHC 31.7 L, RDW Std Deviation 45.3 H, RDW Coeff of Justina 13.1, Plt Count 300, MPV 11.2, Immature Gran % (Auto) 0.500, Neut % (Auto) 60.0, Lymph % (Auto) 27.7, Early % (Auto) 7.8, Eos % (Auto) 3.0, Baso % (Auto) 1.0, Absolute Neuts (auto) 4.7, Absolute Lymphs (auto) 2.19, Nucleated RBC % 0 02/20/22 09:35: PT 12.9, INR 1.0, D-Dimer Quant (PE/DVT) 1.02 H* 02/20/22 09:35: Sodium 139, Potassium 4.4, Chloride 110 H, Carbon Dioxide 23.0, Anion Gap 6, BUN 17, Creatinine 1.23, Estim Creat Clear Calc 73.98, Est GFR (MDRD) Af Amer 78, Est GFR (MDRD) Non-Af 64, BUN/Creatinine Ratio 13.8, Glucose 120 H, Calcium 9.0, Magnesium 2.0, TSH 1.99 02/20/22 09:35: B-Natriuretic Peptide 348.7 H 02/20/22 09:35: Troponin I High Sens 37 02/20/22 12:55: Troponin I High Sens 40 Rhythm Strip Rhythm Strip: Atrial flutter Rate: 155 Ectopy: None Cardiology Labs/Tests 02/20/22 09:35: WBC 7.9, RBC 4.47 L, Hgb 13.4, Hct 42.3, MCV 94.6 H, MCH 30.0, MCHC 31.7 L, Plt Count 300, MPV 11.2, Immature Gran % (Auto) 0.500, Neut % (Auto) 60.0, Lymph % (Auto) 27.7, Early % (Auto) 7.8, Eos % (Auto) 3.0, Baso % (Auto) 1.0, Absolute Neuts (auto) 4.7, Nucleated RBC % 0 02/20/22 09:35: PT 12.9, INR 1.0, D-Dimer Quant (PE/DVT) 1.02 H* 02/20/22 09:35: Sodium 139, Potassium 4.4, Chloride 110 H, Carbon Dioxide 23.0, Anion Gap 6, BUN 17, Creatinine 1.23, Est GFR (MDRD) Af Amer 78, Est GFR (MDRD) Non-Af 64, BUN/Creatinine Ratio 13.8, Glucose 120 H, Calcium 9.0, Magnesium 2.0 02/20/22 09:35: B-Natriuretic Peptide 348.7 H Rhythm: Atrial flutter EKG: Atrial flutter; low voltage QRS limb lead ECHO: Interpretation Summary The study was technically difficult. Contrast injection was performed. Severely dilated left ventricle. Severe global left ventricular systolic dysfunction. The estimated ejection fraction is 10 %. The left atrium is moderately enlarged. Mild papillary muscle dysfunction of the mitral valve. Moderate (2+) mitral valve insufficiency. Mild tricuspid valve insufficiency. Right ventricular systolic pressure estimated to be 32 mmHg. Unable to assess diastolic dysfunction. Radiography Diagnostic Testing: Radiology Impression Chest X-Ray 02/20/22 09:56 IMPRESSION: Presumed bilateral pneumonia. Electronically Signed: Varsha Reyna MD at 10:25 EDT , Chest CTA 02/20/22 10:27 IMPRESSION: 1. No central/large pulmonary embolism. 2. Inconclusive right lower lobe segmental arterial evaluation, intermediate probability of low volume acute pulmonary embolism. Refer to lower extremity US for further risk stratification. 3. Intact aorta. 4. 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 5. Moderate coronary artery disease. Electronically Signed: Varsha Reyna MD at 11:20 EDT ,
[2022-02-20] MEDS: Metoprolol Tartrate 25 MG Tablet PO (14:59)
[2022-02-20] MEDS: 0.9% Saline Lock 10 ML Syringe IV (14:59)
[2022-02-20 16:50] LABS: Thyroid Stim Hormone (TSH) 1.13 uIU/mL (0.358-3.74); Troponin-I HS 35 pg/mL (3.0-78.0)
[2022-02-20] MEDS: Ondansetron 4 MG/2 ML Vial IV (17:04)
--- NOTE | 2022-02-20 17:04 | EKG12_ITS ---
Test Reason : REPEAT CP Blood Pressure : / mmHG Vent. Rate : 117 BPM Atrial Rate : 277 BPM P-R Int : 000 ms QRS Dur : 106 ms QT Int : 370 ms P-R-T Axes : 268 057 076 degrees QTc Int : 516 ms Atrial flutter with variable A-V block with premature ventricular or aberrantly conducted complexes Abnormal ECG Confirmed by FABIEN THAPA, ARTHUR ([id number]), editor magazine BREE [employer] ([id number]) on 02/22/2022 10:50:33 AM Referred By: Wali Finnegan Confirmed By:ARTHUR CONN MD
--- NOTE | 2022-02-20 17:08 | EKG12_ITS ---
Test Reason : CP Blood Pressure : / mmHG Vent. Rate : 069 BPM Atrial Rate : 264 BPM P-R Int : 000 ms QRS Dur : 114 ms QT Int : 448 ms P-R-T Axes : -85 065 085 degrees QTc Int : 480 ms Atrial flutter with variable A-V block Abnormal ECG Confirmed by FABIEN THAPA, RATHUR ([id number]), health editor [employer] ([id number]) on 02/22/2022 11:04:41 AM Referred By: aWli Finnegan Confirmed By:ARTHUR CONN MD
--- NOTE | 2022-02-20 17:16 | NURSING ---
patient diaphoretic, nauseated, vomited 100cc, cardizem turned off, [facility] made aware, new orders received, zofran given, EKG obtained. Cold washcloth and fan provided.
[2022-02-20] MEDS: Acetaminophen 325 MG Tablet 650 MG PO (17:41)
[2022-02-20] MEDS: Enoxaparin 100 MG/ML Syringe SC (21:17)
--- NOTE | 2022-02-20 21:28 | EKG12_ITS ---
Test Reason : CP Blood Pressure : / mmHG Vent. Rate : 057 BPM Atrial Rate : 228 BPM P-R Int : 000 ms QRS Dur : 100 ms QT Int : 498 ms P-R-T Axes : 090 044 086 degrees QTc Int : 484 ms Atrial flutter Abnormal ECG Confirmed by FABIEN THAPA, ARTHUR ([id number]), graphic editor BREE COX ([id number]) on 02/22/2022 11:00:56 AM Referred By: Wali Finnegan Confirmed By:ARTHUR CONN MD
[2022-02-20 22:20] LABS: Troponin-I HS 34 pg/mL (3.0-78.0)
[2022-02-21] VITALS: BP 73/55; PULSE 89; RESP 17; TEMP 36.1; O2SAT 95
[2022-02-21 00:08] VITALS: BP 73/55
[2022-02-21] MEDS: TITRATION PARAMETER CHANGE 1 EACH IV (00:10)
[2022-02-21 01:00] VITALS: BP 82/62; PULSE 76; RESP 20; O2SAT 97
--- NOTE | 2022-02-21 01:37 | PCM.DC.SUM ---
Providers Date of Admission: 02/20/22 Primary Care Physician: Dr. Kedar Haddad MD Consultations 02/20/22 13:56 Consult: Cardiology Routine Consulting Provider: Gregor Amaya Reason for Consult: heart failure, atrial flutter EMERGENT Consult: No MD Notified: Yes Date Notified: 02/20/22 Time Notified: 13:45 Method of Notification: Text Reason For Visit: ARTRIAL FLUTTER WITH RVR Diagnosis Discharge Diagnosis (1) Atrial flutter with rapid ventricular response: Status: Acute Code(s): I48.92 - Unspecified atrial flutter (2) Heart failure: Status: Acute Code(s): I50.9 - Heart failure, unspecified Medications at Discharge Home Medications NK 02/20/22 Hospital Course Operations None Procedures 2-D Echocardiogram Summary of Care Provided Minutes Spent on Discharge: 50 Hospital Course: Per HPI: CAMRYN ALFRED, is a 56 M with a PMH as outlined who presents via the ED on 02/20/2022 with a complaint of palpitations. This had been going on for ~ 4 weeks, with associated shortness of breath. He denied any dizziness, chest pain, nausea or vomiting. Review of systems is otherwise negative. He hasnt had this previously, and doesnt see a doctor regularly. He went to see his PCP today and an EKG done showed heart rate of 154. It was thought to be SVT so he was sent into the ED. On arrival in the ED he had an EKG done which was read as atrial flutter. Vitals at time of review showed blood pressure 119/94, with pulse rate of 121 and respiratory rate of 20. He was saturating at 94% on room air. CBC showed hemoglobin of 13.4 with WBC of 7.9 and platelets of 300. D-dimer was 1.02. BMP was unremarkable with potassium of 4.4. BNP was 348.7. Chest x-ray showed presumed bilateral pneumonia. CTA of the chest showed no central or large pulmonary embolism and showed inconclusive right lower lobe segmental arterial evaluation with intermediate probability of low volume acute PE. 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 He has been admitted to be managed for new onset atrial flutter with rapid ventricular rate. WHilst reviewing patient, a repeat EKG done showed that he was having a STEMI. A STEMI alert was therefore called. Cardiology however reviewed the EKG and did not think that he met the criteria for STEMI so patient was not taken to the [facility]. He was therefore admitted to be managed for new onset atrial flutter with RVR as well as probable new onset heart failure. Hospital course: 1. Acute systolic CHF with a flutter with RVR?56-year-old male presents from home with 4 to 6 weeks of shortness of breath. He says that this started suddenly and denies any previous episodes of chest pain or shortness of breath. He denies any previous medical history and does not take any medications at home. On admission there is some concern that he had a STEMI so cardiology was consulted and felt that this was secondary to his a flutter with RVR. He was initially given a dose of Cardizem however this seemed to drop his pressures especially after he received a dose of Lasix he was given a fluid bolus which did have some recovery. His Cardizem was given prior to the findings on his echo which demonstrated an EF of 10%, as well as a severely dilated left ventricle and severe global left ventricular systolic dysfunction with an RVSP of 32 mmHg. He was transitioned to amiodarone which also seems to have caused little bit of a drop in his blood pressures as well. When I came on his systolics were into the 50s and 60s. He was given another gentle fluid bolus of 250 cc which did not increase his blood pressure. Throughout this entire time he has been asymptomatic, denying any chest pain or lightheadedness. He does have some shortness of breath consistent with his new onset CHF and he has been maintaining his oxygen sats on 2 L nasal cannula. He was transferred to the ICU and started on Levophed. This has improved his blood pressure somewhat and his Levophed has been titrated while up there. I was also able to contact the cardiovascular ICU at [facility] and they have accepted the patient in transfer. Plan will be to transfer the patient to [facility] for further evaluation of his acute systolic cardiomyopathy and new onset a flutter with RVR. Physical Exam Const alert, oriented x3 and no apparent distress General Appearance: cooperative HEENT normocephalic and moist oral mucous membranes Eyes PERRL, EOMs intact bilaterally and conjunctivae normal Neck supple and no JVD Resp normal respiratory effort, no retractions and clear to auscultation bilaterally Auscultation: diminished lung sounds; Negative for crackles, rales, rhonchi or wheezes Cardio regular rate, S1 normal heart sound, S2 normal heart sound and no murmurs Rhythm: abnormal rhythm GI soft to palpation, non-tender and non-distended; Negative for hepatosplenomegaly Extremity no clubbing, cyanosis or edema Skin no rashes or lesions noted Neuro no focal motor deficits and no sensory deficits noted Psych affect normal Appearance: appropriate Weight / BMI Weight Weight: 235 lb 0.204 oz Body Mass Index (BMI) 31.0 ABG / Lab / Microbiology Data Result Diagrams: 02/20/22 09:35 02/20/22 09:35 Laboratory: Laboratory Results - last 24 hr 02/20/22 09:35: WBC 7.9, RBC 4.47 L, Hgb 13.4, Hct 42.3, MCV 94.6 H, MCH 30.0, MCHC 31.7 L, RDW Std Deviation 45.3 H, RDW Coeff of Justina 13.1, Plt Count 300, MPV 11.2, Immature Gran % (Auto) 0.500, Neut % (Auto) 60.0, Lymph % (Auto) 27.7, [place] % (Auto) 7.8, Eos % (Auto) 3.0, Baso % (Auto) 1.0, Absolute Neuts (auto) 4.7, Absolute Lymphs (auto) 2.19, Nucleated RBC % 0 02/20/22 09:35: PT 12.9, INR 1.0, D-Dimer Quant (PE/DVT) 1.02 H* 02/20/22 09:35: Sodium 139, Potassium 4.4, Chloride 110 H, Carbon Dioxide 23.0, Anion Gap 6, BUN 17, Creatinine 1.23, Estim Creat Clear Calc 73.98, Est GFR (MDRD) Af Amer 78, Est GFR (MDRD) Non-Af 64, BUN/Creatinine Ratio 13.8, Glucose 120 H, Calcium 9.0, Magnesium 2.0, TSH 1.99 02/20/22 09:35: B-Natriuretic Peptide 348.7 H 02/20/22 09:35: Troponin I High Sens 37 02/20/22 12:55: Troponin I High Sens 40 02/20/22 15:59: Troponin I High Sens 35, TSH 1.13 02/20/22 21:55: Troponin I High Sens 34 Radiography Diagnostic Testing: Radiology Impression Chest X-Ray 02/20/22 09:56 IMPRESSION: Presumed bilateral pneumonia. Electronically Signed: Varsha Reyna MD at 10:25 EDT , Chest CTA 02/20/22 10:27 IMPRESSION: 1. No central/large pulmonary embolism. 2. Inconclusive right lower lobe segmental arterial evaluation, intermediate probability of low volume acute pulmonary embolism. Refer to lower extremity US for further risk stratification. 3. Intact aorta. 4. 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 5. Moderate coronary artery disease. Electronically Signed: Varsha Reyna MD at 11:20 EDT , Venous Doppler Study 02/20/22 11:49 Interpretation Summary No evidence for acute deep venous thrombosis bilateral lower extremities with patent and compressible bilateral great saphenous veins. Ordering Physician: Stacy Macias Performed By: Rod Vargas RVHumphrey Echocardiogram 02/20/22 13:56 Interpretation Summary The study was technically difficult. Contrast injection was performed. Severely dilated left ventricle. Severe global left ventricular systolic dysfunction. The estimated ejection fraction is 10 %. The left atrium is moderately enlarged. Mild papillary muscle dysfunction of the mitral valve. Moderate (2+) mitral valve insufficiency. Mild tricuspid valve insufficiency. Right ventricular systolic pressure estimated to be 32 mmHg. Unable to assess diastolic dysfunction. Ordering Physician: Rebeca Duron Referring Physician: MD Kedar Haddad Performed By: Lina Martinez RDCS Meaningful Use Info Meaningful Use Diagnoses (Choose all that apply): None applicable Discharge Plan Admission Admit Date/Time: 02/20/22 14:00 Attending Provider: Rebeca Duron Primary Care Provider: Kedar Haddad Consulting Providers: Gregor Amaya Discharge Orders/Prescriptions Prescriptions: No Action NK RF: 0 Referrals / Follow Up: Kedar Haddad MD [Primary Care Provider] - Disposition Discharge Orders: Discharge Patient (Routine); Ordered 02/21/22 Ordered By: Dr. Severino Georges Charges/Coding Visit Charges Inpatient E&M: 95706 Disch Hosp
--- NOTE | 2022-02-21 01:44 | NURSING ---
Pt transferred to ICU from PCU d/t low BP. Levo gtt started on arrival to unit. Dr. Georges placed transfer request to [facility]. [facility] called around 0130 and gave ETA of 1hr for transport pickup. Bed assignment [id number].
--- NOTE | 2022-02-21 01:52 | PN_ITS ---
Progress Note Date of service 02/20/2022 Time of service 2215 Had multiple discussions over the phone during the early part of this evening about patient's blood pressure. He was asymptomatic at that time however pressures were in the mid 50s and lower 60s with maps in the mid 50s. His amiodarone is discontinued and a 250 cc bolus has been given. He has not had any significant response in terms of his blood pressure without bolus. I did discuss the situation with cardiology and they did not feel comfortable managing him here in the hospital. We will plan to transfer to ICU and start him on a Levophed drip and proceed with transfer to [facility] or [facility] [place] depending on who has availability. ANO x3, no acute distress CTA B no W RRC, diminished at bases Regular rate, abnormal rhythm no MRG Pulses intact, no peripheral edema Critical care time spent evaluating patient and discussing with consultants: 45 minutes Procedures Hospitalists Procedures: [id number] Critial Care 1st Hr
[2022-02-21 02:00] VITALS: BP 78/55; PULSE 75; RESP 20; O2SAT 98
== END 2022-02-21 03:00 | disposition other institution (70) | DRG 308 ==
LOC: ED 12:11 → ICU 02-21 03:05 → PCU 02-21 16:21 → ICU 02-21 16:21
PROVIDERS: Family Medicine; Admitting Provider Student in an Organized Health Care Education/Training Program; Emergency Provider Emergency Medicine; PCP Family Medicine; Visit Provider Student in an Organized Health Care Education/Training Program
DX: I48.92 Unspecified atrial flutter (principal); I50.21 Acute systolic (congestive) heart failure; I42.9 Cardiomyopathy, unspecified; F17.210 Nicotine dependence, cigarettes, uncomplicated; I44.0 Atrioventricular block, first degree; I25.10 Atherosclerotic heart disease of native coronary artery without angina pectoris; I49.3 Ventricular premature depolarization; Z85.820 Personal history of malignant melanoma of skin
CPT/HCPCS: 36415; 71045; 71275; 80048; 83735; 83880; 84443; 84484; 85025; 85379; 85610; 87426; 93005; 93306; 93970; 99285; 99406; J7030; J7040; J7050; Q9957; Q9967; A4216; C8929; J1940; J2405